=== PATIENT | male | born 1950 | race Two or more races ===

== ENCOUNTER 2021-07-13 23:48 | Emergency (ER) | payer MEDICAID ==
[~2021-07-13] VITALS: Ht 167.6 cm; Wt 81.6 kg
--- NOTE | 2021-07-13 23:52 | NUR ---
PT BIBRA C/O BACK RT SIDED LAC TO HEAD AND ALCOHOL INTOXICATION. PT AAOX3 BREATHING EVENLY AND UNLABORED. PT ATTACHED TO MONITOR AND POX. MD AT BEDSIDE FOR EVAL. PT GIVEN BLANKET AND CALL LIGHT WITHIN REACH
[2021-07-14 00:19] LABS: BASOPHILS # (AUTO) 0.1 K/uL (0.0-0.2); EOSINOPHILS % (AUTO) 0.9 % (0.0-6.0); HEMATOCRIT 48 % (39-51); HEMOGLOBIN 16.3 g/dL (13.5-17.5); LYMPHOCYTES # (AUTO) 1.9 K/uL (0.8-4.8); LYMPHOCYTES % (AUTO) 29.3 % (20.0-44.0); MEAN CORPUSCULAR HGB CONC 34 g/dl (31.0-36.0); MEAN CORPUSCULAR VOLUME 92 fL (80-96); MONOCYTES # (AUTO) 1.2 K/uL (0.1-1.30); NEUTROPHILS # (AUTO) 3.4 K/uL (1.8-8.9); NEUTROPHILS % (AUTO) 50.8 % (43.0-81.0); PLATELET COUNT (AUTO) 203 K/uL (150-450); RED BLOOD CELL COUNT(AUTO) 5.22 MIL/uL (4.5-6.0); WHITE BLOOD COUNT (AUTO) 6.6 K/uL (4.3-11.0)
[2021-07-14 00:44] LABS: CALCIUM, SERUM 8.2 mg/dL (8.5-10.1); CREATININE 0.9 mg/dL (0.6-1.3); POTASSIUM 3.5 mmol/L (3.5-5.1)
--- NOTE | 2021-07-14 00:54 | NUR ---
DAUGHTER [phone]
--- NOTE | 2021-07-14 03:47 | NUR ---
Patient discharged to home in stable condition. Written and verbal after care instructions given. Patient verbalizes understanding of instruction. IV removed. Catheter intact and site benign. Pressure and 4x4 applied to site. No bleeding noted. PT ambulatory with a steady gait Addendum: 07/14/21 at 0403 by ARSH DAUGHTER WAITING IN PARKING LOT TO PICK PT UP
[2021-07-14 04:15] VITALS: BP 133/80
[2021-07-14 08:00] LABS: LYMPHOCYTES % (MANUAL) 32 % (16-48); MONOCYTES % (MANUAL) 14 % (0-11.0); NEUTROPHILS % (MANUAL) 54 (42-76)
== END 2021-07-14 03:47 | disposition home or self-care (01) ==
LOC: ER 23:52
DX: S01.01XA Laceration without foreign body of scalp, initial encounter (principal); W18.39XA Other fall on same level, initial encounter; Y93.89 Activity, other specified; Y92.89 Other specified places as the place of occurrence of the external cause; Y99.8 Other external cause status
CPT/HCPCS: 12001; 36415; 70450; 71045; 72125; 80048; 84484; 85007; 85025; 93005; 99285; A6403

== ENCOUNTER 2021-07-22 13:05 | Emergency (ER) | payer MEDICAID ==
[~2021-07-22] VITALS: Ht 170.2 cm; Wt 90.7 kg
[2021-07-22 13:10] VITALS: BP 140/89
--- NOTE | 2021-07-22 13:17 | NUR ---
AT BEDSIDE FOR STAPLE REMOVAL.
--- NOTE | 2021-07-22 14:01 | NUR ---
Patient discharged to home in stable condition. Written and verbal after care instructions given. Patient verbalizes understanding of instruction.
== END 2021-07-22 14:01 | disposition home or self-care (01) ==
LOC: ER 13:07
DX: S01.01XD Laceration without foreign body of scalp, subsequent encounter (principal); X58.XXXD Exposure to other specified factors, subsequent encounter